=== PATIENT | male | born 1980 | race Hispanic/Latino ===

== ENCOUNTER 2018-06-04 10:27 | Emergency (ER) | payer OTHER ==
[2018-06-04 11:00] LABS: EOSINOPHILS % (AUTO) 3.9 % (0.0-8.0); HEMATOCRIT 47.1 % (42-54); LYMPHOCYTES % (AUTO) 22.5 % (21.0-51.0); MEAN CORPUSCULAR HEMOGLOBIN 33.5 pg (27.0-33.0); MEAN CORPUSCULAR HGB CONC 35.7 g/dL (32.0-36.0); MEAN CORPUSCULAR VOLUME 93.7 fL (79-99); MONOCYTES % (AUTO) 5.7 % (3.0-13.0); NEUTROPHILS % (AUTO) 66.9 % (40.0-77.0); NUCLEATED RED BLOOD CELLS 0.1 % (0.0-0.19); PLATELET COUNT (AUTO) 237 K/uL (130-400); RED BLOOD CELL COUNT(AUTO) 5.03 MIL/uL (4.50-6.20); RED CELL DISTRIBUTION WIDTH 13.2 % (11.0-15.5); WHITE BLOOD COUNT (AUTO) 5.1 K/uL (4.8-10.8)
[2018-06-04 11:04] LABS: POTASSIUM 3.9 mmol/L (3.5-5.1)
[2018-06-04 11:10] LABS: ALBUMIN 3.9 g/dL (3.5-5.0); BILIRUBIN,TOTAL 0.4 mg/dL (0.2-1.0); TOTAL PROTEIN, SERUM 7.3 g/dL (6.0-8.3)
== END 2018-06-04 13:11 | disposition home or self-care (01) ==
LOC: EDH 10:27
DX: K52.89 Other specified noninfective gastroenteritis and colitis (principal); R42 Dizziness and giddiness; R10.31 Right lower quadrant pain; Z72.0 Tobacco use
CPT/HCPCS: 36415; 74176; 80053; 82150; 83690; 85025